=== PATIENT | female | born 1945 | race African-American/Black ===

== ENCOUNTER 2017-03-12 14:22 | Observation (INO) | payer MEDICARE, OTHER ==
[~2017-03-12] VITALS: Ht 165.1 cm; Wt 78.9 kg
[~2017-03-12 14:22] MED LIST: CALCIUM PO; LEVO500T15 PO; LEVOTHYROXINE PO; METFORMIN PO; PRED10TA23 PO; RAMIPRIL; [UNRECOGNIZED DRUG - CODE] PO
[2017-03-12] MEDS ORDERED: RAMI2.5C10 PO (14:46)
[2017-03-12] MEDS ORDERED: GABA-529 PO (14:46)
[2017-03-12] MEDS ORDERED: ATOR10TA69 PO (14:46)
[2017-03-12] MEDS ORDERED: ASPI-1035 PO (14:46)
[2017-03-12] MEDS ORDERED: IPRATROPIUM BROMIDE (0.02%) 0.5MG/2.5ML NEB HHN STA (15:10)
[2017-03-12] MEDS ORDERED: SODIUM CHLORIDE 0.9% 500 ML IV ONE (15:10)
[2017-03-12] MEDS ORDERED: ALBUTEROL (0.083%) 2.5MG/3ML NEB HHN STA (15:10)
[2017-03-12] MEDS ORDERED: METHYLPREDNISOLONE SOD SUCC 125 MG/2 ML VIAL IV STA (15:10)
[2017-03-12] MEDS ORDERED: MAGNESIUM 2 G PREMIX 50 ML IV ONE (15:15)
[2017-03-12 15:32] LABS: BASOPHILS % 0.3 % (0.0-2.0); DIFFERENTIAL COMMENT 0; HEMATOCRIT. 30.1 % (36.0-48.0); HEMOGLOBIN. 9.3 g/dL (12.0-16.0); MEAN CORPUSCULAR HEMOGLOBIN 24.4 pg (28.0-32.0); MEAN CORPUSCULAR HGB CONC 30.9 g/dL (31.0-37.0); MEAN CORPUSCULAR VOLUME 79.1 fL (81.0-99.0); MEAN PLATELET VOLUME 6.7 fl (7.4-10.4); MONOCYTES % 8.4 % (2.0-8.0); NEUTROPHILS % 78.3 % (40.0-76.0); PLATELET 280 x1000/uL (130-400); RED BLOOD CELL COUNT 3.81 mill/uL (4.2-5.4); WHITE BLOOD COUNT 9.3 x1000/uL (4.5-11.0)
[2017-03-12 15:36] LABS: INR 1.1; PARTIAL THROMBOPLASTIN TIME 32.2 sec (24.0-34.0); PROTHROMBIN TIME 11.6 sec
[2017-03-12 15:44] LABS: ALANINE AMINOTRANSFERASE 12 IU/L (13-61); ALBUMIN 2.9 g/dL (3.4-5.0); ANION GAP 11; CALCIUM 8.4 mg/dL (8.5-10.1); CARBON DIOXIDE 33 mEq/L (21-32); CHLORIDE 101 mEq/L (98-107); INDEX HEMOLYSI 1 (1-3); INDEX ICTERIC 1 (1-4); INDEX LIPEMIC 1 (1-3); LIPASE 92 IU/L (73-393); NT PRO B-TYPE NATRIURETIC PEP 46 pg/mL (5-125); TROPONIN I < 0.02 ng/mL (0.00-0.04); UREA NITROGEN BLOOD 12 mg/dL (7-21); eGFR > 60 mL/min (>60)
[2017-03-12] MEDS ORDERED: LEVOFLOXACIN 500MG PREMIX 100 ML IV NR (16:15)
[2017-03-12] MEDS ORDERED: TEMAZEPAM 15MG CAPSULE PO PRN (22:45)
[2017-03-12] MEDS ORDERED: IPRATROPIUM/ALBUTEROL 0.5-3(2.5)MG/3ML NEB HHN PRN (22:45)
[2017-03-12] MEDS: METHYLPREDNISOLONE SOD SUCC 40 MG/ML VIAL IV SCH (23:36)
[2017-03-13] VITALS: BP 110/62
[2017-03-13 00:38] VITALS: BP 110/62
[2017-03-13] MEDS: IPRATROPIUM/ALBUTEROL 0.5-3(2.5)MG/3ML NEB HHN SCH ×4 (00:39→12:45)
[2017-03-13] MEDS ORDERED: DEXTROSE 50% WATER 50ML SYRINGE IV PRN (03:30)
[2017-03-13 04:00] VITALS: BP 109/69
[2017-03-13] MEDS: METHYLPREDNISOLONE SOD SUCC 40 MG/ML VIAL IV SCH ×2 (06:05→11:57)
[2017-03-13] MEDS: BLOOD SUGAR DIAGNOSTIC STRIP TEST SCH ×2 (06:12→12:42)
[2017-03-13] MEDS ORDERED: OMEPRAZOLE 20MG CAPSULE EXTENDED RELEASE PO SCH (07:40)
[2017-03-13 08:00] VITALS: BP 130/63
[2017-03-13] MEDS ORDERED: METFORMIN HCL 500MG TABLET PO SCH (08:10)
[2017-03-13] MEDS: INSULIN LISPRO 100 UNITS/ML SUBCUT SCH ×2 (08:33→13:26)
[2017-03-13] MEDS ORDERED: ATORVASTATIN CALCIUM 20MG TABLET PO SCH (09:00)
[2017-03-13] MEDS ORDERED: LEVOFLOXACIN 500MG TABLET PO SCH (09:00)
[2017-03-13] MEDS ORDERED: GABAPENTIN 100MG CAPSULE PO SCH (09:00)
[2017-03-13] MEDS ORDERED: CALCIUM 600 MG PO SCH (09:00)
[2017-03-13] MEDS ORDERED: ASPIRIN 81MG EC TABLET PO SCH (09:00)
[2017-03-13 09:14] LABS: HEMATOCRIT. 29.7 % (36.0-48.0); HEMOGLOBIN. 9.3 g/dL (12.0-16.0); MEAN CORPUSCULAR HEMOGLOBIN 24.6 pg (28.0-32.0); MEAN CORPUSCULAR HGB CONC 31.5 g/dL (31.0-37.0); MEAN CORPUSCULAR VOLUME 78.1 fL (81.0-99.0); MEAN PLATELET VOLUME 7.3 fl (7.4-10.4); PLATELET 276 x1000/uL (130-400); RED CELL DISTRIBUTION WIDTH 18.4 % (11.6-14.6); WHITE BLOOD COUNT 8.1 x1000/uL (4.5-11.0)
[2017-03-13 09:17] LABS: DIFFERENTIAL COMMENT 1
[2017-03-13 09:29] LABS: ALANINE AMINOTRANSFERASE 14 IU/L (13-61); ANION GAP 13; CALCIUM 8.9 mg/dL (8.5-10.1); CARBON DIOXIDE 30 mEq/L (21-32); CHLORIDE 101 mEq/L (98-107); INDEX HEMOLYSI 1 (1-3); INDEX ICTERIC 1 (1-4); INDEX LIPEMIC 1 (1-3); LDL CHOLESTEROL 67 mg/dL (5-100); TRIGLYCERIDE 46 mg/dL (0-150); UREA NITROGEN BLOOD 11 mg/dL (7-21)
[2017-03-13 09:31] LABS: HDL CHOLESTEROL 31 mg/dL (40-59); eGFR > 60 mL/min (>60)
[2017-03-13 11:16] LABS: ANISOCYTOSIS 1+
[2017-03-13 11:17] LABS: PLATELET ESTIMATE NORMAL
[2017-03-13] MEDS ORDERED: POTASSIUM CHLORIDE 20MEQ TABLET SR PO SCH (11:45)
[2017-03-13 12:00] VITALS: BP 124/68
[2017-03-13 13:04] VITALS: BP 124/68
== END 2017-03-13 15:45 | disposition home or self-care (01) ==
LOC: ER 16:56 → INTOOBSV 22:37 → 7WST 22:37
PROVIDERS: ADMIT Internal Medicine; ATTEND Internal Medicine
DX: J45.901 Unspecified asthma with (acute) exacerbation (principal); E11.9 Type 2 diabetes mellitus without complications; I10 Essential (primary) hypertension; E03.9 Hypothyroidism, unspecified
CPT/HCPCS: 36415; 71010; 80053; 80061; 82962; 83605; 83690; 83880; 84484; 85025; 85610; 85730; 87040; 93005; 94640; 94644; 94664; 96361; 96365; 96367; 96372; 96375; 96376; 99285; G0378; J1815; J1956; J2920; J2930; J3475; J7040; J7611; J7620

== ENCOUNTER 2018-02-19 12:26 | Emergency (ER) | payer MEDICARE, MEDICAID ==
[~2018-02-19] VITALS: Ht 167.6 cm; Wt 90.0 kg
[~2018-02-19 12:26] MED LIST changes: +ASPI-1159 PO; +ATOR10TA69 PO; +GABA-531 PO; +LEVO112T7 PO; -LEVO500T15 PO; -LEVOTHYROXINE PO; +METF500T4 PO; -METFORMIN PO; +PANT40TA4 PO; -PRED10TA23 PO; +RAMI10CA19 PO; -RAMIPRIL
[2018-02-19 14:17] LABS: CLARITY URINE CLOUDY (CLEAR); COLOR URINE DARK YELLOW (YELLOW); KETONES URINE TRACE (NEGATIVE); LEUKOCYTE ESTERASE URINE NEGATIVE (NEGATIVE); NITRITE URINE NEGATIVE (NEGATIVE); OCCULT BLOOD URINE NEGATIVE (NEGATIVE); PH URINE 6.5 (4.5-8.0); PROTEIN URINE NEGATIVE (NEGATIVE); SPECIFIC GRAVITY URINE 1.023 (1.005-1.030)
[2018-02-19 14:32] LABS: CHLORIDE 97 mEq/L (98-107)
[2018-02-19 14:34] LABS: INR 1.1; PROTHROMBIN TIME 11.5 sec (9.4-11.6)
[2018-02-19 14:40] LABS: HEMATOCRIT. 35.3 % (36.0-48.0); HEMOGLOBIN. 11.1 g/dL (12.0-16.0); MEAN CORPUSCULAR HEMOGLOBIN 27.5 pg (28.0-32.0); MEAN CORPUSCULAR VOLUME 87.4 fL (81.0-99.0); MEAN PLATELET VOLUME 7.5 fl (7.4-10.4); PLATELET 290 x1000/uL (130-400); RED BLOOD CELL COUNT 4.04 mill/uL (4.2-5.4); RED CELL DISTRIBUTION WIDTH 17.6 % (11.6-14.6)
[2018-02-19 15:28] LABS: ATYPICAL LYMPHOCYTES 2
[2018-02-19 15:30] LABS: PLATELET ESTIMATE NORMAL
[2018-02-19 16:15] VITALS: BP 131/60
== END 2018-02-19 16:44 | disposition home or self-care (01) ==
LOC: ER 15:25
DX: J44.1 Chronic obstructive pulmonary disease with (acute) exacerbation (principal); E11.9 Type 2 diabetes mellitus without complications; I11.0 Hypertensive heart disease with heart failure; I50.9 Heart failure, unspecified; E78.00 Pure hypercholesterolemia, unspecified; E03.9 Hypothyroidism, unspecified; Z79.82 Long term (current) use of aspirin; Z99.81 Dependence on supplemental oxygen
CPT/HCPCS: 36415; 71045; 80053; 81003; 83605; 85025; 85610; 87040; 87086; 93005; 99285

== ENCOUNTER 2019-09-02 11:17 | Emergency (ER) | payer MEDICARE, MEDICAID ==
[~2019-09-02] VITALS: Ht 165.1 cm; Wt 73.0 kg
[~2019-09-02 11:17] MED LIST changes: -ASPI-1159 PO; +ASPI-1393 PO; +METF-414 PO; -METF500T4 PO
[2019-09-02] MEDS ORDERED: IPRATROPIUM BROMIDE (0.02%) 0.5MG/2.5ML NEB HHN STA (12:18)
[2019-09-02] MEDS ORDERED: ALBUTEROL (0.083%) 2.5MG/3ML NEB HHN STA (12:18)
[2019-09-02 13:03] LABS: BASOPHILS % 0.2 % (0.0-2.0); EOSINOPHILS % 1.6 % (0.0-5.0); HEMATOCRIT. 30.2 % (36.0-48.0); HEMOGLOBIN. 9.8 g/dL (12.0-16.0); LYMPHOCYTES % 8.7 % (20.0-50.0); MEAN CORPUSCULAR HEMOGLOBIN 30.4 pg (28.0-32.0); MEAN CORPUSCULAR VOLUME 93.8 fL (81.0-99.0); MEAN PLATELET VOLUME 7.1 fl (7.4-10.4); MONOCYTES % 10.4 % (2.0-8.0); NEUTROPHILS % 79.1 % (40.0-76.0); PLATELET 297 x1000/uL (130-400); RED BLOOD CELL COUNT 3.22 mill/uL (4.2-5.4); RED CELL DISTRIBUTION WIDTH 17.3 % (11.6-14.6)
[2019-09-02 13:09] LABS: CHLORIDE 100 mEq/L (98-107)
[2019-09-02 15:52] VITALS: BP 117/62
== END 2019-09-02 16:00 | disposition home or self-care (01) ==
LOC: ER 11:17
DX: I11.0 Hypertensive heart disease with heart failure (principal); I50.9 Heart failure, unspecified; J44.9 Chronic obstructive pulmonary disease, unspecified; E11.9 Type 2 diabetes mellitus without complications; M79.89 Other specified soft tissue disorders; E78.00 Pure hypercholesterolemia, unspecified; E03.9 Hypothyroidism, unspecified; Z90.49 Acquired absence of other specified parts of digestive tract; Z98.890 Other specified postprocedural states; Z79.899 Other long term (current) drug therapy
CPT/HCPCS: 36415; 71045; 80053; 83880; 84484; 85025; 93005; 93970; 94640; 99284; J7611

== ENCOUNTER 2019-11-26 10:41 | Emergency (ER) | payer MEDICARE, MEDICAID ==
[~2019-11-26] VITALS: Ht 162.6 cm; Wt 69.0 kg
[~2019-11-26 10:41] MED LIST changes: -ASPI-1393 PO; +ASPI-1497 PO; -RAMI10CA19 PO; +RAMI10CA68 PO
[2019-11-26] MEDS ORDERED: METHYLPREDNISOLONE SOD SUCC 125 MG/2 ML VIAL IV STA (11:23)
[2019-11-26] MEDS ORDERED: IPRATROPIUM BROMIDE (0.02%) 0.5MG/2.5ML NEB HHN STA (11:23)
[2019-11-26] MEDS ORDERED: ALBUTEROL (0.083%) 2.5MG/3ML NEB HHN STA (11:23)
[2019-11-26] MEDS ORDERED: MAGNESIUM 2 G PREMIX 50 ML IV ONE (11:30)
[2019-11-26 11:47] LABS: CHLORIDE 101 mEq/L (98-107)
[2019-11-26 11:50] LABS: BASOPHILS % 0.5 % (0.0-2.0); EOSINOPHILS % 1.9 % (0.0-5.0); HEMATOCRIT. 29.2 % (36.0-48.0); HEMOGLOBIN. 9.7 g/dL (12.0-16.0); LYMPHOCYTES % 13.7 % (20.0-50.0); MEAN CORPUSCULAR HEMOGLOBIN 31.6 pg (28.0-32.0); MEAN CORPUSCULAR VOLUME 95.4 fL (81.0-99.0); MEAN PLATELET VOLUME 7.4 fl (7.4-10.4); MONOCYTES % 12.9 % (2.0-8.0); PLATELET 331 x1000/uL (130-400); RED BLOOD CELL COUNT 3.06 mill/uL (4.2-5.4); RED CELL DISTRIBUTION WIDTH 14.5 % (11.6-14.6)
[2019-11-26 14:37] VITALS: BP 123/51
== END 2019-11-26 15:22 | disposition short-term general hospital (02) ==
LOC: ER 10:41 → CANBEDREQ 13:59 → ER 15:22
DX: J44.1 Chronic obstructive pulmonary disease with (acute) exacerbation (principal); R03.0 Elevated blood-pressure reading, without diagnosis of hypertension; R00.0 Tachycardia, unspecified; D64.9 Anemia, unspecified; E88.09 Other disorders of plasma-protein metabolism, not elsewhere classified
CPT/HCPCS: 36415; 71045; 80053; 83880; 84484; 85025; 87804; 93005; 94644; 96365; 96375; 99285; J2930; J3475; J7611